=== PATIENT | male | born 1990 | race African-American/Black ===

== ENCOUNTER → 2023-07-30 | Outpatient (CLI) | payer MEDICAID ==
[~2023-07-30] MED LIST: TESSALON PERLE200 MG PO
== END ==
LOC: COL.RAD 09:49
DX: M47.26 Other spondylosis with radiculopathy, lumbar region (principal); M47.27 Other spondylosis with radiculopathy, lumbosacral region; M51.16 Intervertebral disc disorders with radiculopathy, lumbar region; M51.17 Intervertebral disc disorders with radiculopathy, lumbosacral region